=== PATIENT | female | born 1975 | race Caucasian/White ===

== ENCOUNTER → 2016-11-18 | Outpatient (CLI) | payer OTHER ==
[~2016-11-18] VITALS: Ht 160 cm; Wt 68.0 kg
[~2016-11-18] MED LIST: CLOMIPRAMINE HC50 M1 PO; FLUOXETINE HCL40 MG PO; LEXAPRO20 MG PO; PRENATAL; VITAMIN D32000 UNIT PO
== END ==
LOC: GI 07:19
DX: K62.5 Hemorrhage of anus and rectum (principal); K64.4 Residual hemorrhoidal skin tags; K64.8 Other hemorrhoids; K59.00 Constipation, unspecified
CPT/HCPCS: 62110; 62900